=== PATIENT | male | born 2000 | race African-American/Black ===

== ENCOUNTER 2022-08-07 17:57 | Emergency (ER) | payer MEDICAID ==
[~2022-08-07] VITALS: Ht 165.1 cm; Wt 61.0 kg
[2022-08-07 18:21] VITALS: BP 91/58
== END 2022-08-08 04:07 | disposition left against medical advice (07) ==
LOC: ER 17:57
DX: Z53.21 Procedure and treatment not carried out due to patient leaving prior to being seen by health care provider (principal)